=== PATIENT | female | born 2000 | race Native Hawaiian/Other Pacific Islander ===

== ENCOUNTER 2022-05-25 03:02 | Observation (INO) | payer OTHER ==
[2022-05-25] VITALS (18 sets, daily range): BP systolic 106–146; BP diastolic 49–86; PULSE 55–93; TEMP 97.7–98.3
[~2022-05-25] VITALS: Ht 172.7 cm; Wt 82.0 kg
[2022-05-25 03:22] LABS: BASO # 0.1 K/mm3 (0.0-0.2); BASO % 1.2 % (0.0-2.0); EOS # 0.1 K/mm3 (0.0-0.7); EOS % 0.9 % (0.0-4.0); GRAN # 4.8 K/mm3 (1.4-6.5); HEMATOCRIT 40.7 % (37.0-47.0); HEMOGLOBIN 13.9 g/dl (12.5-16.0); LYMPH # 1.9 K/mm3 (1.2-3.4); LYMPH % 25.2 % (20.0-51.0); MEAN CELL VOLUME 92 fl (80.0-100.0); MEAN CORPUSCULAR HEMOGLOBIN 31 pg (27-31); MEAN CORPUSCULAR HGB CONC 34 g/dl (33.0-37.0); MEAN PLATELET VOLUME 10.1 fl (7.4-10.4); MONO # 0.6 K/mm3 (0.1-0.6); MONO % 7.4 % (1.7-9.3); PLATELET COUNT 268 K/mm3 (130-400); RED BLOOD COUNT 4.44 M/mm3 (4.10-5.30); REDCELL DISTRIBUTION WIDTH-CV 13.7 % (11.5-14.5)
[2022-05-25 03:45] LABS: ALANINE AMINOTRANSFERASE 14 U/L (0-55); ALBUMIN 4.2 gm/dL (3.5-5.0); ALKALINE PHOSPHATASE 58 U/L (40-150); ANION GAP 13 mmol/L (7-16); AST,SGOT 22 U/L (5-34); BILIRUBIN,TOTAL 0.2 mg/dL (0.2-1.2); BLOOD UREA NITROGEN 11 mg/dL (7-19); CALCIUM 8.9 mg/dL (8.4-10.2); CARBON DIOXIDE 20 mmol/L (22-29); CHLORIDE 110 mmol/L (98-107); CREATININE, serum 0.96 mg/dL (0.57-1.11); GLUCOSE 100 mg/dL (70-99); POTASSIUM 3.7 mmol/L (3.5-4.5); SODIUM 143 mmol/L (136-145); TOTAL PROTEIN 7.3 gm/dL (6.2-8.1)
[2022-05-25 04:10] LABS: ACETAMINOPHEN < 1.0 ug/mL (10-30); ALCOHOL(ethanol),MEDICAL 210 mg/dL (0-10); SALICYLATE < 5.0 mg/dL (15.0-30.0)
[2022-05-25 04:44] LABS: COLLECTION METHOD CLEAN CATCH
[2022-05-25 05:02] LABS: SQUAMOUS EPITHELIAL 0-2 /hpf (0-10); URINE APPEARANCE Clear (CLEAR/HAZY); URINE BACTERIA None Seen /hpf (NONE SEEN); URINE COLOR Yellow (YELLOW); URINE RBC 0-2 /hpf (0-2)
[2022-05-25 05:03] LABS: URINE BLOOD TRACE-INTACT (NEGATIVE); URINE GLUCOSE Negative (NEGATIVE); URINE KETONE TRACE (NEGATIVE); URINE NITRATE Negative (NEGATIVE); URINE PROTEIN(semi-quant) Negative (NEGATIVE); URINE UROBILINOGEN 0.2 E.U/dL (0.2-1.0)
[2022-05-25 05:06] LABS: TRICYCLIC ANTIDEPRESS URINE NEGATIVE
--- NOTE | 2022-05-25 07:18 | NUR ---
NOTIFIED DR KOCH OF CONSULT.
--- NOTE | 2022-05-25 07:22 | NUR ---
PATIENT ARRIVED TO THE FLOOR FROM ED AT 0611, IV TO RAC INFUSING WELL, ABDOMINAL DRESSING CLEAN DRY AND INTACT, ON SUICIDE PRECAUTION, ORIENTATED TO HOSPITAL POLICIES AND PROCEDURES.
--- NOTE | 2022-05-25 07:25 | NUR ---
REPORT RECEIVED FROM TISSUE SPECIALIST NURSE AT BEDSIDE. PT SLEEPING IN BED AT THIS TIME. IVF INFUSING W/O ISSUE. PT DOESN'T APPEAR TO BE IN DISTRESS. PT HAS HER BOSS IN THE ROOM WELL AT BEDSIDE. THIS NURSE WILL CONTINUE CARES.
--- NOTE | 2022-05-25 09:24 | NUR ---
PT CURRENTLY HAS JEISON RAMOS IN ROOM W/ PT, RELIEVED PREVIOUS " SITTER". PT BEGAN TO CRY AND " SITTER" CLIMBED INTO BED WITH PT. JEISON WAS INFORMED THAT SHE COULD NOT BE IN BED WITH PT. PT HAS DENIED NEED FOR PAIN MEDICATION AND DID REFUSE BREAKFAST. NO FURTHER CONCERNS NOTED AT THIS TIME. WATER PROVIDED UPON REQUEST.
--- NOTE | 2022-05-25 11:04 | NUR ---
THIS NURSE TALKED TO PT COMPANY COMMANDER, LEANNE BRADLEY, GAVE UP DATE ON PT STATUS. PT SEEN BY PSYCH AND SURGERY. WILL NOTIFY HOSPITALIST AND THEN UPDATE THE COMMANDER.
[2022-05-25] MEDS ORDERED: AMOXICILLIN 8751 TAB PO (11:12)
[2022-05-25] MEDS ORDERED: DOXYCYCLINE 10100 MG PO (11:12)
--- NOTE | 2022-05-25 14:20 | NUR ---
NICOLE informed that patient was admitted due to a self inflicted injury to her abdomen awaiting psych eval this a.m. Nurse provided she has spoken to patient and patient has conflicting story in which to what has previously transpired. NICOLE informed that patient had guest in room that worked with patient according to contacted commandar. Dr. Vanegas order for patient to be admitted inpatient. NICOLE called Dr. Nima Truong on [address] and he has provided that their inpatient unit was full. NICOLE sent referrals to the following behavioral health facilities: [facility], [facility], [facility], [facility]. NICOLE informed by SW Auto Body Repairman that once referring facility accepts patient will need to be securing transported to facility. NICOLE in formed house nurse of the above information. NICOLE will continue to follow.
--- NOTE | 2022-05-25 16:15 | NUR ---
TAKING OVER PATIENT'S CARE.
--- NOTE | 2022-05-25 16:31 | NUR ---
PT COMPANY COMMANDER UPDATED ON PT POC. PT HAD ANOTHER "COWORKER" ARRIVE TO "SWITCH" WITH CURRENT "COWORKER". DISCUSSED WITH CHARGE NURSE, PT COMPANY COMMANDER AND CIVIL PROJECT ENGINEER. "COWORKERS" ARE ARRIVING IN STREET [employer], PER COMMANDER THEY DONT NEED SOMEONE THERE IF OUR STAFF IS WATCHING PT AND ABLE TO UPDATE THEM. COWORKERS ASKED TO LEAVE, COOPERATIVE, NO ISSUES. NO FURTHER NEEDS. THIS NURSE CALLED BACK TO ICU. PT NOW BEING OBSERVED BY SHIVAM JEFFREY.
[2022-05-26] VITALS (23 sets, daily range): BP systolic 108–138; BP diastolic 58–76; PULSE 43–74; TEMP 97.6–97.9
--- NOTE | 2022-05-26 01:10 | NUR ---
Patient sleeping in bed at this time, denies pain meds, IV antibiotics given as ordered, closely monitored every 15minutes, suicidal precautions observed.
--- NOTE | 2022-05-26 06:21 | NUR ---
Talked to pt's company commander Dylan, updated patient's condition.
--- NOTE | 2022-05-26 08:25 | NUR ---
HOSPITALIST TEAM ROUNDING. PATIENT INQUIRING ABOUT JUST GOING HOME STATING SHE HAS LOTS OF THINGS TO DO AT HOME AND APTS BUT DID NOT CLARIFY ANY FURTHER. HOSPITALIST CONTACTED PSYCH AND PLAN IS FOR PATIENT TO TRANSFER TO A INPATIENT PSYCH UNIT, PREVIOUSLY DISCUSSED WITH THE PATIENT ON THURSDAY, FOR FURTHER EVALUATION AND TREATMENT. SEE ORDERS. [employer] WORKING ON TRANSFER.
--- NOTE | 2022-05-26 09:30 | NUR ---
PATIENT SEEMED TO PERK UP WHEN SHE HEARD [facility] MIGHT HAVE A BED AVAILABLE LATER TODAY, PENDING A DISCHARGE. PATIENT SAT UP IN BED AND ATE A FEW BITES OF BREAKFAST AND USED THE BATHROOM. PATIENT NOW GOING BACK TO SLEEP BUT ASKED NURSING TO LEAVE BREAKFAST TRAY. APPLIED WARM BLANKETS. PATIENT RESTING WITH CALL LIGHT IN REACH AND SITTER BY DOOR.
--- NOTE | 2022-05-26 14:30 | NUR ---
SOCIAL WORK WAS JUST IN TO GIVEN PATIENT A DISCHARGE UPDATE. UNFORTUNATELY, [facility] DID NOT END UP HAVING A DISCHARGE TODAY. OTHER REFFERALS SENT. PATIENT IS OBVIOUSLY DISAPPOINTED. AWAITING TO HEAR PLACEMENT OPTIONS.
--- NOTE | 2022-05-26 15:20 | NUR ---
farmworker livestock gave verbal and faxed referral to [facility] #[phone] and left [facility] #[phone] to call regarding referral.
--- NOTE | 2022-05-26 15:22 | NUR ---
Update: [facility] states they have 1 opening and are reviewing referral. [facility] is reviewing referral. [facility], [facility],and [facility] are full with no openings. [facility] in unreachable. Message left for [facility]. gathering worker collaborated with [facility] and confirmed no further facilities to reach out to.
--- NOTE | 2022-05-26 16:00 | NUR ---
[employer] PENDING A NEGATIVE COVID SWAB. PATIENT INFO. FAXED.
--- NOTE | 2022-05-26 16:20 | NUR ---
COVID SWAB OBTAINED AND SENT TO LAB. CALLED SECURITY FOR PERSONAL BELONGINGS. WARP KNIT OPERATOR ARRANGING SECURE TRANSPORT.
--- NOTE | 2022-05-26 16:21 | NUR ---
Laura with [facility] ([facility]) accepts patient today. Patient's nurse given Nurse to nurse number. House Superviser [facility]sa notified to arrange secure transport. vehicle delivery worker notified Dr Nima Truong and advised of the above information.
[2022-05-26] MEDS ORDERED: NATURE'S BLEND100 M2 PO (16:32)
[2022-05-26] MEDS ORDERED: DUO-KAPS1 CAP PO (16:32)
[2022-05-26] MEDS ORDERED: FOLIC ACID 11 MG/TA1 PO (16:32)
--- NOTE | 2022-05-26 16:32 | NUR ---
SW met with patient mid day to provide update on the different facilities that have her referral. Patient expresses concerns about missing work for this long. Informed patient that we will keep her updated. SW met with patient to inform her of acceptance. Patient getting covid swab. Provided RN with fax number to send the covid swab once resulted.
--- NOTE | 2022-05-26 17:15 | NUR ---
COMMANDER IRISH BRADLEY CALLED FOR UPDATE ON TRANSFER.
--- NOTE | 2022-05-26 17:30 | NUR ---
This RN requests tranport via [facility] from our facility to [facility] in [place], [place]. [facility] informs me that they will call me back with an ETA.
--- NOTE | 2022-05-26 18:30 | NUR ---
PT IS UP MOVING ABOUT THE ROOM AT THIS TIME. VISUALIZATION BY BOTH SUSSY BUSCH AND SUSSY KWOK. DENIES ANY NEEDS AT THIS TIME. AWAITING SECURE TRANSPORT.
--- NOTE | 2022-05-26 18:30 | NUR ---
TALKED WITH CLOTH HANDLER, STILL WAITING TO HERE A TIME FROM [facility].
--- NOTE | 2022-05-26 18:43 | NUR ---
[facility] states it will be around 10pm ETA when they pick this patient up.
--- NOTE | 2022-05-26 18:45 | NUR ---
PER REPORT PT BELONGINGS WITH PATIENT TO BE GIVEN TO [facility].
--- NOTE | 2022-05-26 22:40 | NUR ---
The patient was picked up by [facility] at this time. Report called to SUSSY Lee at [facility].
== END 2022-05-26 22:45 ==
LOC: COL.ER 03:02 → EDBD 03:02 → SURG 04:25
PROVIDERS: Emergency Medicine; ADMIT Internal Medicine
DX: S31.119A Laceration without foreign body of abdominal wall, unspecified quadrant without penetration into peritoneal cavity, initial encounter (principal); R45.851 Suicidal ideations; F32.A Depression, unspecified; F43.23 Adjustment disorder with mixed anxiety and depressed mood; F41.1 Generalized anxiety disorder; Z72.89 Other problems related to lifestyle; X78.1XXA Intentional self-harm by knife, initial encounter
CPT/HCPCS: G0378; J0690; J2405; J7030